=== PATIENT | female | born 1965 | race Caucasian/White ===

== ENCOUNTER 2017-01-08 13:36 | Emergency (ER) | payer MEDICAID, OTHER ==
[2017-01-08 14:02] VITALS: BP 105/43
[2017-01-08] MEDS ORDERED: KETOROLAC TROMETHAMINE 60 MG/2 ML VIAL IM ONE ×2 (14:39→14:54)
--- OUTSIDE RECORDS SUMMARY | 2017-01-08 14:49 | XMS REPORT | Continuity of Care Document ---
:1965 Author Organization [facility] ([facility]) Address [address] [place] [address] Phone [phone] Care Team Providers Name Role Phone Provider, No-Primary Care Primary Care Provider Unavailable Source Comments This disclosure is being made pursuant to the Care Everywhere program, applicable federal and state laws, and may not contain all informaitonavailable regarding this patient.[facility] ([facility]) Active Allergies and Adverse Reactions Allergen Noted Date Severity Reactions Comments Penicillin 07/19/2015 Unknown Current Medications Prescription Sig. Disp. Refills Start Date End Date Status clonazePAM 1 mg tablet Take 1 mg by mouth Active 2 times daily as needed OTHER Gingko tabs Active CEFDINIR 300 mg 0 06/23/2015 Active capsule LORAZEPAM 1 mg tablet 1 05/28/2015 Active VENLAFAXINE 75 mg XR 0 07/02/2015 Active capsule chlorhexidine 0.12 % Rinse with 10 ML 473 mL 0 08/02/2015 Active oral rinse for 30 seconds twice daily for 10 days. Swish and spit out excess. Nothing by mouth for 30 minutes. ibuprofen 800 mg Take 1 tablet (800 30 tablet 0 08/02/2015 Active tablet mg total) by mouth every 6 hours as needed for Pain DO NOT EXCEED 3,200 MG IBUPROFEN PER DAY FROM ALL SOURCES HYDROcodone-acetaminop Take 1-2 tablets 20 tablet 0 08/02/2015 Active hen 5-325 mg per by mouth every 4 tablet hours as needed for Pain ofloxacin 0.3 % Instill 1 Drop 5 mL 1 10/04/2015 Active ophthalmic solution onto the left eye 4 times daily Active Problems Not on file Social History Tobacco Use Types Packs/Day Years Used Date Current Every Day Smoker Cigarettes 1 20 Smokeless Tobacco: Never Used Alcohol Use Drinks/Week oz/Week Comments Yes social Last Filed Vital Signs Vital Sign Reading Time Taken Blood Pressure 130/75 10/04/2015 12:46 PM [employer]ING [employer] Pulse 70 10/04/2015 12:46 PM [employer]ING [employer] Temperature 36.7 C (98.1 F) 10/04/2015 12:46 PM [employer]CH[employer]ING [employer]ER Respiratory Rate 22 10/04/2015 12:46 PM [employer]CH[employer]ING [employer]ER Height 1.626 m (5' 4.02") 07/19/2015 1:15 PM CDT Weight 90.719 kg (200 lb) 07/19/2015 1:15 PM CDT Body Mass Index 34.31 07/19/2015 1:15 PM CDT Oxygen Saturation 96% 10/04/2015 12:46 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
--- NOTE | 2017-01-08 15:42 | ERNOTE ---
Lower Extremity HPI - Narrative Date of Service: 01/08/17 - General Lower Extremities Pain: knee: right Time Seen by Provider: 01/08/17 14:31 Source: patient Exam Limitations: no limitations - Immun/Allergies/Home Medications Immunizations: IMMUNIZATION HX Immunizations Up to Date Yes History of Influenza Vaccine No Hx Pneumococcal Vaccination No Allergies/Adverse Reactions: Allergies Allergy/AdvReac Type Severity Reaction Status Date / Time penicillin G AdvReac Verified 01/08/17 14:02 Home Medications: HOME MEDICATIONS clonazePAM [Klonopin] 1 mg PO TID PRN 09/01/15 [Last Taken Unknown] Lisdexamfetamine Dimesylate [Vyvanse] 40 mg PO DAILY 10/04/15 [Last Taken Unknown] - History of Present Illness Narrative: Pt. comes in with c/o R knee pain that worsened after she fell over a bed frame. Pt. has chronic knee pain from a baseball injury 26 years ago. Pt. denies any SOB, CP, numbness or tingling. Pt. states that she has taken Ibuprofen, Tylenol, and Aspirin for pain without relief. Pt. denies any professional treatment for her knees in the past twenty years. Review of Systems - Review of Systems Constitutional: Present: no symptoms reported. Absent: recent illness, fever, chills, weakness, fatigue, malaise EYE: Present: no symptoms reported ENT: Present: no symptoms reported Respiratory: Present: no symptoms reported. Absent: shortness of breath, cough , wheezing Cardiology: Present: no symptoms reported. Absent: chest pain, palpitations, edema Gastrointestinal/Abdominal: Present: no symptoms reported. Absent: nausea, vomiting, diarrhea Genitourinary: Present: no symptoms reported Musculoskeletal: Present: joint pain - R knee Skin: Present: no symptoms reported Neurological: Present: no symptoms reported. Absent: headache, dizziness/light- headedness, numbness, tingling All Other Systems: All systems neg except as marked - Patient's Past Medical History Patient History - Medical: Anxiety, Depression Patient History - Cardiac/Respiratory: No pertinent hx Patient History - Cancer: No Hx of Cancer Patient History - Surgical Procedures: Patient History - Other: None LMP (females 10-50): Menopausal - Family History Father Family History - Medical: No pertinent hx Mother Family History - Medical: No pertinent hx - Social History Living Situations: parents Abuse History: No History of abuse Psych History: Psychiatric Hx, Hx of Anxiety, Hx of Depression, Hx of Psychiatric Tx, Current tx/ever been on anti-depressants or anti-anxiety meds Alcohol Use: none Drug Use: meth - Immunizations Immunizations Up to Date: Yes Hx Pneumococcal Vaccination: No History of Influenza Vaccine: No Physical Exam - Physical Exam General Appearance: Present: wd/wn, alert, no apparent distress Eye Exam: Normal inspection: bilateral, PERRL: bilateral, EOMI: bilateral Ears, Nose, Throat: Present: normal ENT inspection, normal pharynx Neck: Present: normal inspection, nontender. Absent: lymphadenopathy (R), lymphadenopathy (L) Respiratory: Present: no respiratory distress, normal breath sounds, no accessory muscle use, chest nontender, lungs clear Cardiovascular/Chest: Present: regular rate, rhythm, no murmur, normal peripheral pulses Gastrointestinal/Abdominal: Present: normal bowel sounds, nontender, nondistended, soft, no organomegaly Back Exam: Present: normal inspection, normal range of motion, no CVA tenderness , no vertebral tenderness Extremity Exam: Present: decreased range of motion - R knee, joint swelling - R knee, other - inter joint pain R knee. Absent: joint redness Neurological Exam: Present: alert, oriented, normal mood/affect, no motor/ sensory deficits Skin Exam: Present: normal color, warm/dry. Absent: pallor, skin rash ED Progress - Date and Time Seen: Date and Time: 01/08/17 15:40 Pt. attempted to leave AMA prior to getting pain medication and xray due to the need to take care of her dad. Able to talk pt. into staying...received pain medication but left ama because the of the "non smoking law" before she could get her xray. - Vital Signs Patient's Vital Signs:: I have reviewed the patient's vital signs. Vital Signs: Vital Signs 01/08/17 13:48 Temperature 36.7 C Pulse Rate 80 Respiratory 18 Rate Blood Pressure 105/43 O2 Sat by Pulse 96 Oximetry - Progress/Reassessment Chief Complaint: Lower Extremity Pain/ Injury Departure Clinical Impression: Knee pain Qualifiers: Laterality: right Chronicity: chronic Qualified Code(s): M25.561 - Pain in right knee; G89.29 - Other chronic pain - Departure Disposition: Against medical advice Condition: Fair Referrals: Georgina Swift ARNP [Primary Care Provider] -
== END 2017-01-08 15:32 | disposition left against medical advice (07) ==
LOC: ER 13:36
DX: M25.561 Pain in right knee (principal); G89.29 Other chronic pain

== ENCOUNTER 2017-06-15 16:10 | Emergency (ER) | payer OTHER ==
[2017-06-15 16:17] VITALS: BP 117/73
--- NOTE | 2017-06-15 16:42 | ERNOTE ---
Date of Service: 06/15/17 Time Seen by Provider: 06/15/17 16:25 Stated Complaint: SHORT OF BREATH.DIZZY Presenting Symptoms:: runny nose Source: patient, RN notes reviewed Exam Limitations: no limitations Immunizations: IMMUNIZATION HX Immunizations Up to Date Yes History of Influenza Vaccine No Hx Pneumococcal Vaccination No Allergies/Adverse Reactions: Allergies penicillin G Adverse Reaction (Verified 06/15/17 16:17) Home Medications: HOME MEDICATIONS clonazePAM [Klonopin] 1 mg PO TID PRN 09/01/15 [Last Taken Unknown] Lisdexamfetamine Dimesylate [Vyvanse] 40 mg PO DAILY 10/04/15 [Last Taken Unknown] Albuterol Sulfate [Ventolin Hfa] 1 - 2 puff IH Q4H PRN #1 inhaler 06/15/17 [ Last Taken Unknown] Cetirizine HCl [Allergy Relief] 10 mg PO DAILY #30 tablet 06/15/17 [Last Taken Unknown] Fluticasone Propionate [Flonase] 2 spray NS DAILY #1 inhaler 06/15/17 [Last Taken Unknown] Lamotrigine [Lamictal] 150 mg PO HS 06/15/17 [Last Taken Unknown] - History of Present Ilness Narrative: 51 y/o female ambulatory to the ED for URI symptoms that began 2 days ago. She reports being exposed to a lot of powder and dust at her job that makes her symptoms worse. She has not been taking anything for the symptoms. Timing: getting worse Frequency/Possible Cause: Reports: unknown cause Prior Treatment: Denies: recently seen Review of Systems - Review of Systems Constitutional: Absent: recent illness, fever, chills EYE: Present: tearing. Absent: eye discharge, vision changes ENT: Present: nose congestion, nasal drainage. Absent: ear pain, sore throat Respiratory: Absent: shortness of breath, cough Cardiology: Absent: chest pain, syncope Gastrointestinal/Abdominal: Absent: nausea, vomiting, abdominal pain Genitourinary: Present: no symptoms reported Musculoskeletal: Absent: muscle pain, joint pain Skin: Absent: rash, lesions Neurological: Present: headache, dizziness/light-headedness Endocrine: Present: no symptoms reported Hematologic/Lymphatic: Present: no symptoms reported Psych: Present: no symptoms reported - Patient's Past Medical History Patient History - Medical: Anxiety, Depression Patient History - Cardiac/Respiratory: No pertinent hx Patient History - Cancer: No Hx of Cancer Patient History - Surgical Procedures: Patient History - Other: None - Family History Father Family History - Medical: No pertinent hx Mother Family History - Medical: No pertinent hx - Social History Living Situations: home Abuse History: No History of abuse Psych History: Psychiatric Hx, Hx of Anxiety, Hx of Depression, Hx of Psychiatric Tx, Current tx/ever been on anti-depressants or anti-anxiety meds Smoking Status: Current every day smoker Cigarettes Packs Per Day: 0.5 Alcohol Use: none Drug Use: meth - Immunizations Immunizations Up to Date: Yes Hx Pneumococcal Vaccination: No History of Influenza Vaccine: No Physical Exam - Physical Exam General Appearance: Present: wd/wn, alert, no apparent distress Head Exam: Present: normal inspection Eye Exam: Normal inspection: bilateral Ears, Nose, Throat: Present: other - Hoarse voice, pale boggy turbinates with clear rhinorrhea. Absent: abnormal TM (R), abnormal TM (L), pharyngeal erythema Neck: Present: normal inspection, nontender, supple Respiratory: Present: no respiratory distress, no accessory muscle use, expiration (prolonged), wheezing - mild Cardiovascular/Chest: Present: regular rate, rhythm, no murmur, normal peripheral pulses Neurological Exam: Present: alert, oriented, normal mood/affect, no motor/ sensory deficits Skin Exam: Present: normal color, warm/dry ED Progress - Vital Signs Patient's Vital Signs:: I have reviewed the patient's vital signs. Vital Signs: Vital Signs 06/15/17 16:13 Temperature 36.5 C Pulse Rate 94 Respiratory 12 Rate Blood Pressure 117/73 O2 Sat by Pulse 99 Oximetry - Progress/Reassessment Chief Complaint: Upper Respiratory Symptoms Progress:: Unchanged Departure - Departure Clinical Impression: Allergic rhinitis Qualifiers: Chronicity: acute Allergic rhinitis trigger: unspecified Allergic rhinitis seasonality: seasonal Qualified Code(s): J30.2 - Other seasonal allergic rhinitis Disposition: Home Follow Up Needed Condition: Good Instructions: Form - Excuse from Work, School, or Physical Activity, Allergic Rhinitis Additional Instructions: Use nasal saline spray as needed for congestion and dryness at work Follow up with your doctor or return to ER if symptoms worsen Referrals: Mike Pisano MD [Primary Care Provider] - Prescriptions: Albuterol Sulfate [Ventolin Hfa] 1 - 2 puff IH Q4H PRN #1 inhaler PRN Reason: Shortness Of Breath Cetirizine HCl [Allergy Relief] 10 mg PO DAILY #30 tablet Fluticasone Propionate [Flonase] 2 spray NS DAILY #1 inhaler
== END 2017-06-15 16:45 | disposition home or self-care (01) ==
LOC: ER 16:10
DX: J30.2 Other seasonal allergic rhinitis (principal); F41.8 Other specified anxiety disorders; F17.200 Nicotine dependence, unspecified, uncomplicated